=== PATIENT | female | born 1950 | race Caucasian/White ===

== ENCOUNTER → 2016-12-15 | Day surgery (SDC) | payer BC, OTHER ==
[2016-12-06 10:51] VITALS: Ht 165.1 cm; Wt 106.8 kg
[~2016-12-15] VITALS: Ht 165.1 cm; Wt 106.8 kg
[~2016-12-15] MED LIST: APIX1TAB3 PO; CRS/10 PO; DOCU-94 PO; ESCI1TAB10 PO; FURO-85 PO; LIDOCAINE HCL 2% 2 ML VIAL (20MG/ML) ONE; MRPSR30; OXYC40TA34 PO; OXYC80TA16 PO; PANT40TA PO; PROPOFOL IV EMULSION 10 MG/ML 20 ML VIAL IV ONE; TOPI100T20 PO; VITAMIN D3 PO; [UNRECOGNIZED DRUG - CODE]
--- NOTE | 2016-12-15 13:14 | Endo History and Physical ---
History & Physical Date of Service: Dec 15, 2016. Chief Complaint: screening Referring Physician: Dr. Chrissie Francis History of Present Illness For colonoscopy Past Surgical History Hx Cardiac Surgery: No Hx Internal Defibrillator: No Hx Pacemaker: No Hx Abdominal Surgery: Yes (LYNSEY) Hx of Implantable Prosthesis: No Hx Post-Op Nausea and Vomiting: No Hx Cancer Surgery: No Hx Thoracic Surgery: No Hx Orthopedic: Yes (LUMBAR FUSION (TOTAL OF 9 BACK SURGERIES) FUSED T1-BELOW L6 ) Family History Colon CA Social History Smoking Status: Never Smoker Hx Substance Use: Yes (SEE MED REC) Hx Alcohol Use: No Allergies Coded Allergies: Bee Venom (Unverified Allergy, Severe, ANAPHYLAXIS, 12/06/16) Latex (Unverified Allergy, Intermediate, HIVES, 12/06/16) Current Medications Reported Home Medications Medications Dose Route/Sig Max Daily Dose Days Date Category Eliquis (Apixaban) 5 Mg Tab 1 Tab PO BID 12/06/16 Reported [Vitamin D3] 50,000 Inter.unit PO QAM 12/06/16 Reported Colace (Docusate Sodium) 100 Mg Cap 1 Cap PO QPM 30 12/06/16 Reported Lasix (Furosemide) 20 Mg Tab 20 Mg PO QAM 12/06/16 Reported Lexapro (Escitalopram Oxalate) 20 Mg Tab 20 Mg PO QAM 12/06/16 Reported Oxycontin (Oxycodone Hcl) 40 Mg Tab 40 Mg PO TID PRN 12/06/16 Reported Oxycontin (Ext Rel) (Oxycodone HCl) 80 Mg Tabcr 80 Mg PO Q12 12/06/16 Reported Crestor (Rosuvastatin Calcium) 10 Mg Tab 10 Mg PO 3XWK 12/06/16 Reported Topamax (Topiramate) 100 Mg Tab 100 Mg PO QAM 12/06/16 Reported Protonix (Pantoprazole Sodium) 40 Mg Tab 40 Mg PO BID 12/06/16 Reported Vital Signs Weight (Kilograms): 106.82 Height (Feet): 5 Height (Inches): 5 Physical Exam General Appearance: WD/WN, + obese Respiratory/Chest: Respiratory effort: no dyspnea Cardiovascular: Heart Auscultation: RRR Abdomen: Inspection & Palpation: soft Assessment and Plan For screening colonoscopy
--- NOTE | 2016-12-15 13:46 | Endo History and Physical ---
History & Physical Date of Service: Dec 15, 2016. Chief Complaint: GERD Referring Physician: Dr Grove History of Present Illness For EGD Past Surgical History Hx Cardiac Surgery: No Hx Internal Defibrillator: No Hx Pacemaker: No Hx Abdominal Surgery: Yes (LYNSEY) Hx of Implantable Prosthesis: No Hx Post-Op Nausea and Vomiting: No Hx Cancer Surgery: No Hx Thoracic Surgery: No Hx Orthopedic: Yes (LUMBAR FUSION (TOTAL OF 9 BACK SURGERIES) FUSED T1-BELOW L6 ) Family History Colon [place] Social History Smoking Status: Never Smoker Hx Substance Use: Yes (SEE MED REC) Hx Alcohol Use: No Allergies Coded Allergies: Bee Venom (Unverified Allergy, Severe, ANAPHYLAXIS, 12/06/16) Latex (Unverified Allergy, Intermediate, HIVES, 12/06/16) Current Medications Reported Home Medications Medications Dose Route/Sig Max Daily Dose Days Date Category Morphine Sulfate ER (Morphine Sulfate) 30 Mg Tabcr 12/15/16 Reported Morphine Sulfate Er (Morphine Sulfate) 80 Mg Cap 12/15/16 Reported Eliquis (Apixaban) 5 Mg Tab 1 Tab PO BID 12/06/16 Reported [Vitamin D3] 50,000 Inter.unit PO QAM 12/06/16 Reported Colace (Docusate Sodium) 100 Mg Cap 1 Cap PO QPM 30 12/06/16 Reported Lasix (Furosemide) 20 Mg Tab 20 Mg PO QAM 12/06/16 Reported Lexapro (Escitalopram Oxalate) 20 Mg Tab 20 Mg PO QAM 12/06/16 Reported Oxycontin (Oxycodone Hcl) 40 Mg Tab 40 Mg PO TID PRN 12/06/16 Reported Oxycontin (Ext Rel) (Oxycodone HCl) 80 Mg Tabcr 80 Mg PO Q12 12/06/16 Reported Crestor (Rosuvastatin Calcium) 10 Mg Tab 10 Mg PO 3XWK 12/06/16 Reported Topamax (Topiramate) 100 Mg Tab 100 Mg PO QAM 12/06/16 Reported Protonix (Pantoprazole Sodium) 40 Mg Tab 40 Mg PO BID 12/06/16 Reported Vital Signs Weight (Kilograms): 106.82 Height (Feet): 5 Height (Inches): 5 Physical Exam General Appearance: + obese Respiratory/Chest: Respiratory effort: no dyspnea Cardiovascular: Heart Auscultation: RRR Abdomen: Bowel Sounds: pertinent finding (scars) Assessment and Plan acid reflux for EGD
--- NOTE | 2016-12-15 14:12 | Discharge Instructions ---
Endoscopy Patient Instructions Date / Procedure(s) Performed Dec 15, 2016. EGD Allergy Information Coded Allergies: Bee Venom (Unverified Allergy, Severe, ANAPHYLAXIS, 12/06/16) Latex (Unverified Allergy, Intermediate, HIVES, 12/06/16) Discharge Date / Findings Dec 15, 2016. Loosened fundoplication, abnormal mucosa in antrum Medication Instructions Restart Stopped Medication(s): resume meds Reported Home Medications Medications Dose Route/Sig Max Daily Dose Days Date Category Morphine Sulfate ER (Morphine Sulfate) 30 Mg Tabcr 12/15/16 Reported Morphine Sulfate Er (Morphine Sulfate) 80 Mg Cap 12/15/16 Reported Eliquis (Apixaban) 5 Mg Tab 1 Tab PO BID 12/06/16 Reported [Vitamin D3] 50,000 Inter.unit PO QAM 12/06/16 Reported Colace (Docusate Sodium) 100 Mg Cap 1 Cap PO QPM 30 12/06/16 Reported Lasix (Furosemide) 20 Mg Tab 20 Mg PO QAM 12/06/16 Reported Lexapro (Escitalopram Oxalate) 20 Mg Tab 20 Mg PO QAM 12/06/16 Reported Oxycontin (Oxycodone Hcl) 40 Mg Tab 40 Mg PO TID PRN 12/06/16 Reported Oxycontin (Ext Rel) (Oxycodone HCl) 80 Mg Tabcr 80 Mg PO Q12 12/06/16 Reported Crestor (Rosuvastatin Calcium) 10 Mg Tab 10 Mg PO 3XWK 12/06/16 Reported Topamax (Topiramate) 100 Mg Tab 100 Mg PO QAM 12/06/16 Reported Protonix (Pantoprazole Sodium) 40 Mg Tab 40 Mg PO BID 12/06/16 Reported Provider Instructions Activity Restrictions - No exercising or heavy lifting for 24 hours. - Do not drink alcohol the day of the procedure. - Do not drive a car or operate machinery until the day after the procedure. - Do not make any important decisions or sign important papers in 24 hours after the procedure. Following Day: - Return to full activity which may include returning to work/school. Diet Start your diet with liquids and light foods (jello, soup, juice, toast). Then eat your usual diet if not nauseated. Treatment For Common After Affects For mild abdominal pain, bloating, or excessive gas: - Rest - Eat lightly - Lie on right side Follow-Up Information Follow-up with as scheduled Anesthesia Information What You Should Know You have had a procedure that required some medicine to reduce anxiety and discomfort. This treatment is called moderate sedation. After receiving the treatment, you may be sleepy, but you will be able to breathe on your own. The effects of the treatment may last for several hours. Follow these instructions along with Activity/Diet recommendations noted above: * Do NOT do anything where dizziness or clumsiness would be dangerous. * Rest quietly at home today, then you can be up and about tomorrow. * Have a responsible person stay with you the rest of today. * You may have had an I.V. today. If so, you may take the dressing off later today. Recommendations Call your doctor if: * Trouble breathing * Continuous vomiting for more than 24 hours * Temperature above 101 degrees * Severe abdominal pain or bloating * Pain not relieved by pain medicine ordered * There is increased drainage or redness from any incision * A large amount of rectal bleeding greater than 2-3 tablespoons. (If you had a polyp/s removed or have hemorrhoids, a small amount of blood - from the rectum is to be expected.) * You have any unanswered questions or concerns. IN THE EVENT OF A SERIOUS EMERGENCY, GO TO THE NEAREST EMERGENCY ROOM Your discharge instructions were prepared by provider Jamey Harrison. Patient Instructions Signature Page [facility] Patient (or Guardian) Signature/Date: I have read and understand the instructions given to me by my caregivers. Caregiver/RN/Doctor Signature/Date: The above-named patient and/or guardian has received patient instructions on this date. + Original Patient Signature Page (only) stays with chart. Please make copy for patient.
--- NOTE | 2016-12-15 14:17 | GI REPORT ---
Procedure Date: 12/15/2016 1:40 PM Procedure: Upper GI endoscopy Indications: Heartburn, Follow-up of gastro-esophageal reflux disease Medicines: Propofol total dose 120 mg IV, Lidocaine 40 mg IV Complications: No immediate complications. Estimated Blood Loss: Estimated blood loss was minimal. Procedure: Pre-Anesthesia Assessment: - Prior to the procedure, a History and Physical was performed, and patient medications, allergies and sensitivities were reviewed. The patient's tolerance of previous anesthesia was reviewed. - The risks and benefits of the procedure and the sedation options and risks were discussed with the patient. All questions were answered and informed consent was obtained. After obtaining informed consent, the endoscope was passed under direct vision. Throughout the procedure, the patient's blood pressure, pulse, and oxygen saturations were monitored continuously. The scope was introduced through the mouth, and advanced to the second part of duodenum. The upper GI endoscopy was accomplished without difficulty. The patient tolerated the procedure well. Findings: A small hiatus hernia was present. Evidence of a Thais fundoplication was found at the gastroesophageal junction. The wrap appeared loose. This was traversed. White nummular lesions were noted in the prepyloric region of the stomach. Biopsies were taken with a cold forceps for histology. Estimated blood loss was minimal. The examined duodenum was normal. Impression: - Small hiatus hernia. - A Thais fundoplication was found. The wrap appears loose. - White nummular lesions in gastric mucosa. Biopsied. - Normal examined duodenum. Recommendation: - Discharge patient to home (ambulatory). - Continue present medications. - Await pathology results. - Return to primary care physician PRN. Jamey Harrison M.D. Jamey Harrison MD 12/15/2016 2:17:23 PM This report has been signed electronically. Note Initiated On: 12/15/2016 1:40 PM
--- NOTE | 2016-12-15 14:40 | Anesthesiology Progress Note ---
Anesthesia Post Op Note Date & Time Dec 15, 2016 at 14:41 Vital Signs Pain Intensity: 4 Vital Signs Past 12 Hours Date Time Temp Pulse Resp B/P Pulse Ox O2 Delivery O2 Flow Rate FiO2 12/15/16 14:36 70 20 128/61 95 Room Air 12/15/16 14:21 68 20 137/78 99 Mask 5 12/15/16 13:37 37.1 72 20 135/69 98 Room Air Notes Mental Status: alert / awake / arousable, participated in evaluation Pt Amnestic to Procedure: Yes Nausea / Vomiting: adequately controlled Pain: adequately controlled Airway Patency, RR, SpO2: stable & adequate BP & HR: stable & adequate Hydration State: stable & adequate Anesthetic Complications: no major complications apparent
[2016-12-15 14:51] VITALS: BP 138/63; PULSE 68; O2SAT 95
== END | disposition home or self-care (01) ==
LOC: C.GI 12:51 → EDSTATUS 15:00
PROVIDERS: ATTEND Internal Medicine Gastroenterology
DX: K29.70 Gastritis, unspecified, without bleeding (principal); K21.9 Gastro-esophageal reflux disease without esophagitis; K44.9 Diaphragmatic hernia without obstruction or gangrene; Z80.0 Family history of malignant neoplasm of digestive organs; Z98.890 Other specified postprocedural states; Z98.1 Arthrodesis status; Z79.01 Long term (current) use of anticoagulants